=== PATIENT | female | born 1970 | race Caucasian/White ===

== ENCOUNTER 2024-05-26 14:44 | Inpatient (IN) | payer SELFPAY ==
[~2024-05-26] VITALS: Ht 160 cm; Wt 53.1 kg
[2024-05-26] MEDS: SODIUM CHLORIDE 0.9% 1,000 ML IV ONE (15:25)
[2024-05-26 16:08] LABS: BASOPHILS % 0.6 % (0.0-2.0); EOSINOPHILS % 1.2 % (0.0-5.0); HEMATOCRIT. 40.1 % (36.0-48.0); HEMOGLOBIN. 13.2 g/dL (12.0-16.0); LYMPHOCYTES % 11.3 % (20.0-50.0); MEAN CORPUSCULAR HEMOGLOBIN 29.6 pg (28.0-32.0); MEAN CORPUSCULAR HGB CONC 32.8 g/dL (31.0-37.0); MEAN CORPUSCULAR VOLUME 90.4 fL (81.0-99.0); MEAN PLATELET VOLUME 7.4 fl (7.4-10.4); MONOCYTES % 4.1 % (2.0-8.0); NEUTROPHILS % 82.8 % (40.0-76.0); PLATELET 471 x1000/uL (130-400); RED BLOOD CELL COUNT 4.44 mill/uL (4.2-5.4); WHITE BLOOD COUNT 11.6 x1000/uL (4.5-11.0)
[2024-05-26 16:09] LABS: CARBON DIOXIDE 29 mEq/L (21-32); CHLORIDE 108 mEq/L (98-107); POTASSIUM 3.6 mEq/L (3.5-5.1); SODIUM 145 mEq/L (136-145)
[2024-05-26 16:10] LABS: CALCIUM 9.4 mg/dL (8.7-10.4)
[2024-05-26 16:15] LABS: CREATININE 0.9 mg/dL (0.6-1.0); GLUCOSE 111 mg/dL (70-105); UREA NITROGEN BLOOD 20 mg/dL (9-23)
[2024-05-26 16:16] LABS: TROPONIN I HIGH SENSITIVITY 10 ng/L (3.0-34)
[2024-05-26 16:17] LABS: ACETAMINOPHEN < 2 ug/mL (10-30)
[2024-05-26 16:19] LABS: ETHANOL BLOOD < 10 mg/dL (<10)
[2024-05-26 21:30] VITALS: BP 108/74; PULSE 98; RESP 20; TEMP 36.3; O2SAT 99
[2024-05-26 22:00] VITALS: BP 108/74; PULSE 98; RESP 20; TEMP 36.3
[2024-05-26] MEDS ORDERED: ONDANSETRON HCL 4MG/2ML INJ IV PRN (22:15)
[2024-05-27] VITALS (8 sets, daily range): BP systolic 102–147; BP diastolic 55–76; PULSE 60–93; RESP 18–20; TEMP 36.4–37.1; O2SAT 95–100
[2024-05-27 04:00] LABS: CLARITY URINE CLOUDY (CLEAR); COLOR URINE YELLOW (YELLOW); GLUCOSE URINE NEGATIVE (NEGATIVE); KETONES URINE NEGATIVE (NEGATIVE); LEUKOCYTE ESTERASE URINE NEGATIVE (NEGATIVE); NITRITE URINE NEGATIVE (NEGATIVE); OCCULT BLOOD URINE NEGATIVE (NEGATIVE); PROTEIN URINE NEGATIVE (NEGATIVE); SPECIFIC GRAVITY URINE 1.021 (1.005-1.030)
[2024-05-27 04:05] LABS: *AMPHETAMINES SCREEN URINE PRESUMPTIVE POSITIVE (NEGATIVE); *BARBITURATES SCREEN URINE NEGATIVE (NEGATIVE); *BENZODIAZEPINES SCREEN URINE NEGATIVE (NEGATIVE); *COCAINE SCREEN URINE NEGATIVE (NEGATIVE); CANNABINOID URINE SCREEN NEGATIVE (NEGATIVE); ECSTASY MDMA SCREEN URINE CONF.TEST INDICATED (NEGATIVE); METHADONE URINE SCREEN NEGATIVE (NEGATIVE); OPIATES URINE SCREEN NEGATIVE (NEGATIVE); PHENCYCLIDINE URINE SCREEN NEGATIVE (NEGATIVE)
[2024-05-27 05:06] LABS: SQUAMOUS EPITHELIAL CELL URINE 1+ /lpf (RARE/1+)
[2024-05-27 05:08] LABS: RBC URINE 0-2 /hpf (0-2)
[2024-05-27 05:13] LABS: BACTERIA URINE TRACE
[2024-05-27] MEDS: PANTOPRAZOLE 40MG DR TABLET PO SCH (07:40)
[2024-05-27] MEDS ORDERED: LORAZEPAM 2MG/ML INJ IV PRN (10:15)
[2024-05-28] VITALS: BP 124/76; PULSE 88; RESP 18; TEMP 36.5; O2SAT 97
[2024-05-28 04:00] VITALS: BP 126/68; PULSE 91; RESP 18; TEMP 35.9; O2SAT 98
[2024-05-28 08:00] VITALS: BP 123/82; PULSE 83; RESP 20; TEMP 36.6; O2SAT 96
[2024-05-28 11:05] LABS: BASOPHILS % 0.7 % (0.0-2.0); EOSINOPHILS % 3.8 % (0.0-5.0); HEMATOCRIT. 38.7 % (36.0-48.0); HEMOGLOBIN. 12.8 g/dL (12.0-16.0); LYMPHOCYTES % 16.8 % (20.0-50.0); MEAN CORPUSCULAR HEMOGLOBIN 29.7 pg (28.0-32.0); MEAN CORPUSCULAR HGB CONC 33.2 g/dL (31.0-37.0); MEAN CORPUSCULAR VOLUME 89.4 fL (81.0-99.0); MEAN PLATELET VOLUME 7.1 fl (7.4-10.4); MONOCYTES % 4.8 % (2.0-8.0); NEUTROPHILS % 73.9 % (40.0-76.0); PLATELET 400 x1000/uL (130-400); RED BLOOD CELL COUNT 4.33 mill/uL (4.2-5.4); WHITE BLOOD COUNT 9.2 x1000/uL (4.5-11.0)
[2024-05-28 11:16] LABS: CHLORIDE 105 mEq/L (98-107); POTASSIUM 3.9 mEq/L (3.5-5.1); SODIUM 142 mEq/L (136-145)
[2024-05-28 11:17] LABS: CALCIUM 9.3 mg/dL (8.7-10.4); CARBON DIOXIDE 31 mEq/L (21-32)
[2024-05-28 11:22] LABS: CREATININE 0.6 mg/dL (0.6-1.0); GLUCOSE 105 mg/dL (70-105)
[2024-05-28 11:23] LABS: UREA NITROGEN BLOOD 16 mg/dL (9-23)
[2024-05-28 11:24] LABS: ALANINE AMINOTRANSFERASE 7 IU/L (10-49); ALBUMIN 3.6 g/dL (3.2-4.8); ASPARTATE AMINOTRANSFERASE 18 IU/L (<34)
[2024-05-28 11:25] LABS: BILIRUBIN TOTAL 0.3 mg/dL (0.1-1.0)
[2024-05-28 11:51] LABS: BILIRUBIN DIRECT < 0.1 mg/dL (<=3.0)
[2024-05-28 12:00] VITALS: BP 120/81; PULSE 91; RESP 20; TEMP 36.6; O2SAT 98
[2024-05-28 14:55] VITALS: BP 120/81; PULSE 91; TEMP 97.9; O2SAT 98
[2024-05-28 16:00] VITALS: BP 125/79; PULSE 90; RESP 20; TEMP 36.6; O2SAT 100
== END 2024-05-28 15:25 | disposition home or self-care (01) | DRG 812 ==
LOC: ER 14:44 → 7WST 20:07 → EDBEDREQTM 20:18 → EDBEDREQ 20:18 → 6EST 05-27 17:13
PROVIDERS: ADMIT Internal Medicine; ATTEND Internal Medicine
DX: T40.411A Poisoning by fentanyl or fentanyl analogs, accidental (unintentional), initial encounter (principal); G92.9 Unspecified toxic encephalopathy; F19.10 Other psychoactive substance abuse, uncomplicated; Z59.00 Homelessness unspecified; Z79.899 Other long term (current) drug therapy; S50.311A Abrasion of right elbow, initial encounter; X58.XXXA Exposure to other specified factors, initial encounter; Y93.89 Activity, other specified; Y92.89 Other specified places as the place of occurrence of the external cause; Y99.8 Other external cause status
CPT/HCPCS: 36415; 71045; 73080; 80048; 80076; 80305; 80307; 80320; 80329; 81003; 84484; 85025; 93005; 99285; A4565; A4606; J7030; G0480